=== PATIENT | male | born 1950 | race Caucasian/White ===

== ENCOUNTER → 2016-09-12 | Outpatient (CLI) | payer MEDICARE, OTHER ==
[2016-09-12 11:59] LABS: BUN/CREATININE RATIO 17 (0-10)
== END ==
LOC: LAB 10:22
PROVIDERS: Physician Assistant Surgical
DX: E78.5 Hyperlipidemia, unspecified (principal)
CPT/HCPCS: 36415; 80053; 80061

== ENCOUNTER 2017-01-23 08:19 | Emergency (ER) | payer MEDICARE ==
[2017-01-23 09:15] LABS: HEMOGLOBIN 13.2 gm/dl (14.0-17.5); RED BLOOD COUNT 4.31 M/UL (4.20-5.50); WHITE BLOOD COUNT 5.6 K/UL (4.5-11.0)
[2017-01-23 09:29] LABS: BUN/CREATININE RATIO 27 (0-10)
== END 2017-01-23 12:10 | disposition home or self-care (01) ==
LOC: ER1 08:19
PROVIDERS: Physician Assistant
DX: K57.31 Diverticulosis of large intestine without perforation or abscess with bleeding (principal); I25.810 Atherosclerosis of coronary artery bypass graft(s) without angina pectoris; I10 Essential (primary) hypertension; E78.5 Hyperlipidemia, unspecified; K21.9 Gastro-esophageal reflux disease without esophagitis; Z87.19 Personal history of other diseases of the digestive system; Z98.890 Other specified postprocedural states; Z88.8 Allergy status to other drugs, medicaments and biological substances; Z95.1 Presence of aortocoronary bypass graft
CPT/HCPCS: 36415; 80053; 82150; 82272; 83605; 83690; 85025; 85610; 85730; 86850; 86900; 86901; 96360; 99284; C9113; J7030; J7050; Q9962

== ENCOUNTER → 2020-09-10 | Outpatient (CLI) | payer MEDICARE, SELFPAY | LOC: NM 09:00 → ECHO 12:00 → NM 13:00 | DX: I25.10 Atherosclerotic heart disease of native coronary artery without angina pectoris (principal); Z95.0 Presence of cardiac pacemaker | CPT/HCPCS: ECHO; 78452; 93017; 93306; A9502; J2785 ==